=== PATIENT | male | born 1980 | race Caucasian/White ===

== ENCOUNTER 2020-06-19 14:39 | Outpatient (CLI) | payer BC, SELFPAY ==
--- NOTE | ~2020-06-19 | XR_ITS ---
XR chest 2V DATE: 06/19/2020 14:53 INDICATION: Shortness of breath TECHNIQUE: PA and lateral views COMPARISON: None FINDINGS: Normal heart size. No hilar or mediastinal enlargement. No pulmonary infiltrate or consolid ation, pleural effusion or pulmonary vascular congestion or pneumothorax. There is mild dextroscolios is of the thoracolumbar spine. IMPRESSION: No active cardiopulmonary disease Reviewed, dictated and finalized at location B.
== END 2020-06-19 14:40 ==
PROVIDERS: PCP Family Medicine Adolescent Medicine; Visit Provider Physician Assistant
DX: R06.02 Shortness of breath (principal)
CPT/HCPCS: 71046

== ENCOUNTER → 2025-05-23 11:12 | Outpatient (CLI) | payer BC, SELFPAY ==
--- NOTE | ~2025-05-23 | XR_ITS ---
HISTORY: R07.81 - Pleurodynia COMPARISON: None TECHNIQUE: 3 views of the bilateral ribs were performed along with a PA view of the chest FINDINGS: No acute displaced fracture is appreciated. Bone mineralization is age-appropriate. The cardiomediastinal silhouette is unremarkable. The lungs are clear. IMPRESSION: No acute displaced rib fracture detected bilaterally. The lungs are clear. If clinical suspicion persists, cross-sectional imaging (noncontrast enhanced CT examination of the c hest) is suggested for further evaluation. Reviewed, dictated and finalized at location A. IMPRESSION: No acute displaced rib fracture detected bilaterally. The lungs are clear. If clinical suspicion persists, cross-sectional imaging (noncontrast enhanced C T examination of the chest) is suggested for further evaluation.
== END ==
PROVIDERS: PCP Family Medicine; Visit Provider Family Medicine
DX: R07.81 Pleurodynia (principal)
CPT/HCPCS: 71111